=== PATIENT | female | born 1985 | race Asian ===

== ENCOUNTER 2019-02-15 20:03 | Emergency (ER) | payer OTHER ==
[~2019-02-15] VITALS: Ht 160 cm; Wt 60.8 kg
[2019-02-15 20:09] VITALS: Ht 160 cm; Wt 60.8 kg
[2019-02-15 20:37] LABS: BASOPHIL % 0.3 % (0-2); PLATELET COUNT 324 x10^3mcL (130-400)
[2019-02-15 20:39] LABS: RED CELL DISTRIBUTION WIDTH 16.3 % (11.5-14.5)
[2019-02-15 20:41] LABS: CALCIUM 8.5 mg/dL (8.5-10.1); CARBON DIOXIDE 27.9 mmol/L (21-32); CHLORIDE SERUM 103 mmol/L (98-107); CREATININE SERUM 0.8 mg/dL (0.6-1.0); GFR1 > 60 mL/min; GLUCOSE SERUM 90 mg/dL (74-106); POTASSIUM SERUM 3.3 mmol/L (3.5-5.1); SODIUM SERUM 140 mmol/L (136-145)
[2019-02-15 20:45] LABS: ALBUMIN 3.5 g/dL (3.4-5.0); ALKALINE PHOSPHATASE 52 U/L (46-116); ALT/SGPT 29 U/L (14-59); AST/SGOT 15 U/L (15-37); BILIRUBIN TOTAL 0.3 mg/dL (0.20-1.00)
[2019-02-15 20:46] LABS: TOTAL PROTEIN, SERUM 8.4 g/dL (6.4-8.2)
[2019-02-15 22:49] VITALS: BP 96/56
== END 2019-02-15 22:49 | disposition home or self-care (01) ==
LOC: ED 20:03
PROVIDERS: Emergency Medicine
DX: R00.2 Palpitations (principal); R06.02 Shortness of breath; R42 Dizziness and giddiness; R11.0 Nausea
CPT/HCPCS: 36415; Q0092